=== PATIENT | female | born 1955 | race Caucasian/White ===

== ENCOUNTER → 2017-02-19 | Outpatient (CLI) | payer OTHER ==
[~2017-02-19] MED LIST: ACET-2043 PO; ACYC-1 PO; ACYC800T99 PO; ADV100/50 INH; ADVAIR; ALB17R; ALBU8.5H IH; ALBU8.5H12 IH; AMIT-104 PO; AMOX-362 PO; AZIT-1 PO; AZIT-17 PO; BENZ200C15 PO; BLOO-1318 MC; BLOO-1337 MC; BP MED; CET10 PO; CHOL200038 PO; CITA-137 PO; COUGH SYRUP; CYAN1TAB68 PO; CYC10 PO; CYCL10TA29 PO; DAR100 PO; DEXL60CA6 PO; DIAZ-308 PO; DOXY-181 PO; DULO60CA56 PO; ESCI10TA8 PO; ESTR1POW41 PO; FAMO-67 PO; FAMO40TA62 PO; FERR-41 PO; FLUT1DIS27 IH; FLUT9.9S; FUR20 PO; GABA-506 PO; GABA-549 PO; GLUC100026 PO; GOLYTE PO; GUAI120L3 PO; HEART MED; HYDR-385 PO; IBUP-1482 PO; KET10 PO; LANC-1149 MC; LEVO25TA61 PO; LIB PO; LOR5/325 PO; LORA-630 PO; MELO-150 PO; METH4TAB66 PO; METO-733 PO; METO25TA23 PO; MIL50PT PO; MOMR; MON10 PO; MULT-1085 PO; MULT-785 PO; NAPR-724 PO; NYST100040 PO; OMEP-125 PO; ONDA4TAB97 PO; OXYC-865 PO; PAN40; PANT20TA27 PO; PANT40TA65 PO; PIOG15TA66 PO; PRED20TA6 PO; PREG25 PO; PROM-110 PO; QUE25 PO; QUET25TA30 PO; RABE20TA33 PO; Return to Work; Return to work; SIME80TA PO; SUCR1TAB51 PO; SULF-198 PO; SUMA100T32 PO; TRA50 PO; TRAZ-156 PO; VAL500 PO; VALA100059 PO; VALA500T63 PO; VALA500T66 PO; VIT-40 PO; VIT1TABL PO; ZOLP-1 PO; [UNRECOGNIZED DRUG - OTHER]; [UNRECOGNIZED DRUG - REMARK]; [UNRECOGNIZED DRUG - REMARK]; [UNRECOGNIZED DRUG - REMARK]
== END ==
LOC: LAB 08:57
PROVIDERS: ATTEND Nurse Practitioner Family
DX: E78.5 Hyperlipidemia, unspecified (principal)
CPT/HCPCS: 36415; 82040; 82247; 82310; 82374; 82435; 82465; 82565; 82947; 83718; 84075; 84132; 84155; 84295; 84450; 84460; 84478; 84520

== ENCOUNTER 2017-04-11 15:06 | Emergency (ER) | payer OTHER ==
--- NOTE | 2017-04-11 15:08 | ER Report ---
History and Physical Time Seen By MD: 15:06 HPI/ABDIRASHID CHIEF COMPLAINT: altered mental status HISTORY OF PRESENT ILLNESS: This is a 61 year old female. She was at work this morning and was at the employee meeting where work assignments were given. She does not remember what happened after that. She remembers her friends/coworkers saying that she looked terrible. She next remembers being driven home. Her boss called her to check in and suggested that it would be good to be evaluated. She drove herself to urgent care for evaluation. Teresita Birmingham [facility] and started an evaluation. She let me know that she would be coming to the ER. The patient did not seem as sharp mentally as she had been on previous visits. At urgent care the patient had reported some epigastric pain ; some urinary frequency and mild dysuria; no current headache, but some headaches earlier in the week; very fatigued for about a week; some blurred vision off and on for the last week; some mild shortness of breath off and on this week; also some dizziness off and on this week. She denied chest pain, numbness or tingling or weakness. EMS brought her to the ER. They reported a normal blood sugar of 159. Normal vital signs. They elicited a complaint of right sided abdominal pain and fatigue. They had a negative stroke scale. On my exam, I was able to find out that she has epigastric abdominal discomfort, but no right sided abdominal pain. She gave me the same information regarding her lack of memory surrounding events this morning. She has no headache at this time. She feels a little dizzy with sitting up. Confirmed the intermittent shortness of breath, and the intermittent blurred vision. She has had some dental pain recently as well. Has been working hard and thinks maybe not drinking or eating as much recently. Denies any weakness at this time. Denies numbness. REVIEW OF SYSTEMS: Constitutional: No fever or chills. Eyes: No double vision. ENT: No sore throat. No congestion. No hearing changes. Cardiovascular: No chest pain. No palpitations. Respiratory: No cough. Gastrointestinal: No nausea or vomiting. No change in bowel movements. No blood in the stool or melena. Genitourinary: No dysuria. No hematuria. Musculoskeletal: No back pain. No extremity pain. Skin: No rashes. No bruising. Neurological: No numbness. No weakness. Allergies: Coded Allergies: milk (Verified Adverse Reaction, Unknown, DIARRHEA, 07/02/16) Home Meds Active Scripts Fluticasone/Salmeterol (ADVAIR 100-50 DISKUS) 1 Each Disk.w.dev, 1 EACH IH QDAY , #1 DISK 11 Refills Prov:TISHA LAST APRN-C 02/21/17 Methylprednisolone (METHYLPREDNISOLONE) 4 Mg Tab.ds.pk, 4 MG PO DIRECTED, #1 DOSE-PACK 0 Refills Prov:TISHA LAST APRN-C 02/18/17 Levothyroxine Sodium (LEVOTHYROXINE SODIUM) 25 Mcg Tablet, 1 TAB PO QDAY, #90 TAB 2 Refills Prov:TISHA LAST APRN-C 12/20/16 Duloxetine Hcl (CYMBALTA) 60 Mg Capsule.dr, 1 TAB PO QDAY, #30 CAP 5 Refills Prov:TISHA LAST APRN-Vivian 11/21/16 Gabapentin (GABAPENTIN) 300 Mg Capsule, 4 CAP PO DAILY, #120 CAPSULE 5 Refills Take one cap morning and afternoon and 2 caps at bedtime Prov:TISHA LAST APRN-Vivian 11/21/16 Sucralfate (SUCRALFATE) 1 Gm Tablet, 1 TAB PO ACHS, #120 TAB 1 Refill Prov:TISHA LAST APRN-C 08/01/16 Acyclovir (ACYCLOVIR) 800 Mg Tablet, 1 TAB PO QID Y for hepes outbreak, #90 TAB 0 Refills Prov:TISHA LAST APRN-C 08/01/16 Pantoprazole Sodium (PANTOPRAZOLE SODIUM) 40 Mg Tablet.dr, 40 MG PO QDAY, #30 TAB.SR 6 Refills Prov:JIM NAGY MD 05/29/16 Reported Medications Famotidine (FAMOTIDINE) 20 Mg Tablet, 20 MG PO QDAY, TAB 04/11/17 Albuterol Sulfate 90 Mcg/Act (PROAIR HFA 90 MCG/ACT) 8.5 Gm Hfa.aer.ad, 2 PUFF IH Q4-6H, INHALER 11/20/16 Pioglitazone Hcl (PIOGLITAZONE HCL) 15 Mg Tablet, 15 MG PO BID 07/02/16 Metoprolol Succinate (METOPROLOL SUCCINATE) 25 Mg Tab.er.24h, 1 TAB PO QDAY, TAB 07/02/16 Discontinued Reported Medications Glucosamine Sulfate 2KCL (GLUCOSAMINE) 1,000 Mg Tablet, 1000 MG PO DAILY 12/28/15 Acetaminophen (ACETAMINOPHEN) 500 Mg Tablet, 1 TAB PO TID, TAB 12/28/15 Past Medical/Surgical History Hypertension, Type 2 Diabetes, Hiatal hernia, GERD. Reviewed Nurses Notes: Yes Hx Smoking: No Smoking Status: Never Smoker Hx Substance Use Disorder: No Hx Alcohol Use: No Constitutional Vital Sign - Last 24 Hours 04/11/17 04/11/17 04/11/17 04/11/17 15:06 15:07 15:21 15:30 Temp 97.5 Pulse 79 81 79 Resp 17 16 15 B/P (MAP) 117/82 118/77 (91) Pulse Ox 96 95 96 O2 Delivery Nasal Cannula 04/11/17 04/11/17 04/11/17 04/11/17 15:36 15:50 15:51 16:00 Pulse 80 ??? Resp 16 13 B/P (MAP) ???/??? (1665) Pulse Ox 97 97 O2 Flow Rate 2.0 04/11/17 04/11/17 04/11/17 04/11/17 16:06 16:21 16:30 16:36 Pulse ? 72 Resp 10 B/P (MAP) 135/94 (108) Pulse Ox 95 04/11/17 04/11/17 04/11/17 04/11/17 16:41 16:56 17:00 17:11 Pulse 78 79 82 Resp 15 14 16 B/P (MAP) 115/69 (84) Pulse Ox 93 94 94 04/11/17 04/11/17 04/11/17 17:26 17:30 17:41 Pulse 83 83 Resp 16 28 B/P (MAP) 102/55 (71) Pulse Ox 95 95 Physical Exam General Appearance: The patient is alert. No acute distress. Non-toxic in appearance. Eyes: Pupils are equal, round. Reactive to light. No pallor, injection or icterus. Extraocular movements are intact. ENT: Mucous membranes are moist. Normal oral mucosa. Posterior oropharynx is normal. Normal nasal mucosa. Normal tympanic membranes and canals. Neck: Supple and non tender. No lymphadenopathy. Respiratory: Lungs are clear to auscultation. There are no retractions or accessory muscle use. Cardiovascular: Regular rate and rhythm. No murmurs, gallops or rubs. Normal capillary refill. No edema. Gastrointestinal: Abdomen has some epigastric area discomfort, but no focal pain. Nondistended. No rebound or guarding. No masses or organomegaly. Normal active bowel sounds. No costovertebral angle tenderness with percussion. Neurological: Alert and oriented x3. Cranial nerves with eye exam as above, no facial droop or numbness, midline tongue and palate elevation symmetric, normal shoulder shrug. No focal neurologic deficits in the extremities with no weakness. Skin: Warm and dry. No rashes. Musculoskeletal: Extremities are nontender. No tenderness in palpation of the cervical, thoracic and lumbar spine. DIFFERENTIAL DIAGNOSIS: After history and physical exam, differential diagnosis was considered for a patient with non-specific symptoms. Will look at labs, urinalysis, EKG, chest x-ray, and head CT scan. No focal neurologic deficits. Medical Decision Making Data Points Result Diagram: 04/11/17 1521 04/11/17 1521 Laboratory Hematology Test 04/11/17 15:21 04/11/17 15:44 Red Blood Count 4.20 M/uL (4.17-5.56) Mean Corpuscular Volume 92.3 fL (80.0-96.0) Mean Corpuscular Hemoglobin 31.2 pg (26.0-33.0) Mean Corpuscular Hemoglobin Concent 33.8 g/dL (32.0-36.0) Red Cell Distribution Width 13.8 % (11.5-14.5) Mean Platelet Volume 10.2 fL (7.2-11.1) Neutrophils (%) (Auto) 45.5 % (39.4-72.5) Lymphocytes (%) (Auto) 43.1 % (17.6-49.6) Monocytes (%) (Auto) 8.8 % (4.1-12.4) Eosinophils (%) (Auto) 2.1 % (0.4-6.7) Basophils (%) (Auto) 0.5 % (0.3-1.4) Nucleated RBC Relative Count (auto) 0.0 /100WBC Neutrophils # (Auto) 2.3 K/uL (2.0-7.4) Lymphocytes # (Auto) 2.2 K/uL (1.3-3.6) Monocytes # (Auto) 0.4 K/uL (0.3-1.0) Eosinophils # (Auto) 0.1 K/uL (0.0-0.5) Basophils # (Auto) 0.0 K/uL (0.0-0.1) Nucleated RBC Absolute Count (auto) 0.00 K/uL Prothrombin Time 12.6 seconds (12.0-14.4) Prothromb Time International Ratio 0.95 Activated Partial Thromboplast Time 27 seconds (23-35) Sodium Level 136 mmol/L (137-145) Potassium Level 3.8 mmol/L (3.5-5.0) Chloride Level 102 mmol/L (98-107) Carbon Dioxide Level 22 mmol/L (22-31) Blood Urea Nitrogen 20 mg/dl (7-18) Creatinine 0.80 mg/dl (0.52-1.04) Glomerular Filtration Rate Calc > 60.0 Random Glucose 132 mg/dl (75-110) Calcium Level 9.2 mg/dl (8.4-10.2) Total Bilirubin 0.6 mg/dl (0.2-1.3) Aspartate Amino Transf (AST/SGOT) 27 U/L (0-35) Alanine Aminotransferase (ALT/SGPT) 33 U/L (0-56) Alkaline Phosphatase 109 U/L (0-126) Troponin I < 0.012 ng/ml C-Reactive Protein < 0.5 mg/dl (<1.0) B-Type Natriuretic Peptide 69 pg/ml (0-100) Total Protein 7.6 gm/dl (6.3-8.2) Albumin 4.0 g/dl (3.5-5.0) Urine Color Yellow Urine Clarity Clear Urine pH 5.0 pH (4.8-9.5) Urine Specific [place] 1.027 Urine Protein Negative mg/dL (NEGATIVE) Urine Glucose (UA) Negative mg/dL (NEGATIVE) Urine Ketones Trace mg/dL (NEGATIVE) Urine Blood Negative (NEGATIVE) Urine Nitrite Negative (NEGATIVE) Urine Bilirubin Negative (NEGATIVE) Urine Urobilinogen Negative mg/dL (0.2-1.9) Urine Leukocyte Esterase Negative (NEGATIVE) Urine RBC None /HPF (0-2/HPF) Urine WBC <1 /HPF (0-5/HPF) Urine Squamous Epithelial Cells Few /LPF (NONE-FEW) Urine Bacteria Negative /HPF (NONE-FEW) Urine Mucus Few /HPF (NONE-FEW) Chemistry Test 04/11/17 15:21 04/11/17 15:44 White Blood Count 5.1 k/uL (4.5-11.0) Red Blood Count 4.20 M/uL (4.17-5.56) Hemoglobin 13.1 g/dL (12.0-16.0) Hematocrit 38.7 % (34.0-47.0) Mean Corpuscular Volume 92.3 fL (80.0-96.0) Mean Corpuscular Hemoglobin 31.2 pg (26.0-33.0) Mean Corpuscular Hemoglobin Concent 33.8 g/dL (32.0-36.0) Red Cell Distribution Width 13.8 % (11.5-14.5) Platelet Count 172 K/uL (150-450) Mean Platelet Volume 10.2 fL (7.2-11.1) Neutrophils (%) (Auto) 45.5 % (39.4-72.5) Lymphocytes (%) (Auto) 43.1 % (17.6-49.6) Monocytes (%) (Auto) 8.8 % (4.1-12.4) Eosinophils (%) (Auto) 2.1 % (0.4-6.7) Basophils (%) (Auto) 0.5 % (0.3-1.4) Nucleated RBC Relative Count (auto) 0.0 /100WBC Neutrophils # (Auto) 2.3 K/uL (2.0-7.4) Lymphocytes # (Auto) 2.2 K/uL (1.3-3.6) Monocytes # (Auto) 0.4 K/uL (0.3-1.0) Eosinophils # (Auto) 0.1 K/uL (0.0-0.5) Basophils # (Auto) 0.0 K/uL (0.0-0.1) Nucleated RBC Absolute Count (auto) 0.00 K/uL Prothrombin Time 12.6 seconds (12.0-14.4) Prothromb Time International Ratio 0.95 Activated Partial Thromboplast Time 27 seconds (23-35) Glomerular Filtration Rate Calc > 60.0 Calcium Level 9.2 mg/dl (8.4-10.2) Total Bilirubin 0.6 mg/dl (0.2-1.3) Aspartate Amino Transf (AST/SGOT) 27 U/L (0-35) Alanine Aminotransferase (ALT/SGPT) 33 U/L (0-56) Alkaline Phosphatase 109 U/L (0-126) Troponin I < 0.012 ng/ml C-Reactive Protein < 0.5 mg/dl (<1.0) B-Type Natriuretic Peptide 69 pg/ml (0-100) Total Protein 7.6 gm/dl (6.3-8.2) Albumin 4.0 g/dl (3.5-5.0) Urine Color Yellow Urine Clarity Clear Urine pH 5.0 pH (4.8-9.5) Urine Specific [place] 1.027 Urine Protein Negative mg/dL (NEGATIVE) Urine Glucose (UA) Negative mg/dL (NEGATIVE) Urine Ketones Trace mg/dL (NEGATIVE) Urine Blood Negative (NEGATIVE) Urine Nitrite Negative (NEGATIVE) Urine Bilirubin Negative (NEGATIVE) Urine Urobilinogen Negative mg/dL (0.2-1.9) Urine Leukocyte Esterase Negative (NEGATIVE) Urine RBC None /HPF (0-2/HPF) Urine WBC <1 /HPF (0-5/HPF) Urine Squamous Epithelial Cells Few /LPF (NONE-FEW) Urine Bacteria Negative /HPF (NONE-FEW) Urine Mucus Few /HPF (NONE-FEW) Coagulation Test 04/11/17 15:21 Prothrombin Time 12.6 seconds Prothromb Time International Ratio 0.95 Activated Partial Thromboplast Time 27 seconds Urinalysis Test 04/11/17 15:44 Urine Color Yellow Urine Clarity Clear Urine pH 5.0 pH (4.8-9.5) Urine Specific [place] 1.027 Urine Protein Negative mg/dL (NEGATIVE) Urine Glucose (UA) Negative mg/dL (NEGATIVE) Urine Ketones Trace mg/dL (NEGATIVE) Urine Blood Negative (NEGATIVE) Urine Nitrite Negative (NEGATIVE) Urine Bilirubin Negative (NEGATIVE) Urine Urobilinogen Negative mg/dL (0.2-1.9) Urine Leukocyte Esterase Negative (NEGATIVE) Urine RBC None /HPF (0-2/HPF) Urine WBC <1 /HPF (0-5/HPF) Urine Squamous Epithelial Cells Few /LPF (NONE-FEW) Urine Bacteria Negative /HPF (NONE-FEW) Urine Mucus Few /HPF (NONE-FEW) EKG/Imaging EKG Interpretation Reviewed the EKG from urgent care which shows a sinus rhythm with rate 82, nonspecific T-wave changes but no ST elevation or depression. Normal axis without any QRS abnormalities. 12 lead EKG: Rhythm: normal sinus rhythm, rate 77 [place]: normal QRS: normal ST segments: Nonspecific flattening of T waves, no ST elevation or depression noted Imaging EXAMINATION: CT Head without intravenous contrast HISTORY: Altered mental status. TECHNIQUE: Axial images were obtained from the skull base to the vertex without intravenous contrast. Sagittal and coronal reformatted images are also submitted. One of the following dose optimization techniques was utilized in the performance of this exam: Automated exposure control; adjustment of the mA and/ or kV according to the patient's size; or use of an iterative reconstruction technique. Specific details can be referenced in the facility's radiology CT exam operational policy. COMPARISON: 03/18/2012. FINDINGS: Brain volume: Normal. Ventricles: Negative. Acute ischemic changes: None. Hemorrhage: None. Masses / edema: None. [place]-white: Negative. White matter: Negative. Vessels: Negative. Extra-axial: Negative. 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 Otherwise negative. Visualized sinuses / orbits: Leftward nasal septal deviation anteriorly. Rightward nasal septal deviation posteriorly. IMPRESSION: No acute intracranial abnormality. Report Dictated By: Des Vega MD at 04/11/2017 4:17 PM 2 VIEWS CHEST INDICATION: Altered mental status. Epigastric pain. COMPARISON: 06/24/2016. FINDINGS: Cardiomediastinal silhouette and pulmonary vessels within normal limits. There is no focal infiltrate or lobar consolidation. There is no pneumothorax or pleural effusion. No nodule. Upper abdomen is unremarkable. No acute bony abnormality. IMPRESSION: 1. No acute cardiopulmonary process. Report Dictated By: Todd Delaney at 04/11/2017 4:17 PM ED Course/Re-evaluation Clinical Indication for ER IV: Hydration, IV Access ED Course Evaluation did not reveal any major problems. She did have a mildly low sodium, and an elevated BUN/Cr ratio with a concentrated urine and urine ketones. We gave a liter of normal saline and she does feel better. EKG and imaging as above was negative. Still no focal neurologic deficits on re-evaluation and she remains alert and oriented. Normal vital signs. Discussed the need to rest and increase fluid intake over the weekend. Decision to Disposition Date: Apr 11, 2017 Decision to Disposition Time: 17:35 Depart Departure Latest Vital Signs Vital Signs Date Time Temp Pulse Resp B/P (MAP) Pulse Ox O2 Delivery O2 Flow Rate FiO2 04/11/17 17:41 83 28 95 04/11/17 17:30 102/55 (71) 04/11/17 15:50 2.0 04/11/17 15:07 97.5 Nasal Cannula Impression: Primary Impression: Dehydration Condition: Improved Disposition: HOME OR SELF-CARE Referrals: TISHA LAST APRNP-C (PCP) Patient Instructions: Dehydration (ED) Additional Instructions: The evaluation here in the ER today showed some dehydration, but no other problems. We would like to have you rest over the next few days and increase fluid intake. Light to moderate activity is okay. If you have further problems like today, please return for re-evaluation. We recommend seeing your primary care doctor next week for re-evaluation as well. BRENDA NOONAN MD Apr 11, 2017 15:08
[2017-04-11] MEDS ORDERED: FAMO-67 PO (15:29)
[2017-04-11 15:45] LABS: PLATELET COUNT, AUTOMATED 172 K/uL (150-450)
--- NOTE | 2017-04-11 16:10 | EKG ---
FACILITY: [facility] PATIENT NAME: SAUL WALTERS : [id number] MR: [id number] V: [id number] EXAM DATE: ORDERING PHYSICIAN: BRENDA NOONAN TECHNOLOGIST: LUIS ANTONIO Smyth Reason : CHEST PRESSURE Blood Pressure : / mmHG Vent. Rate : 077 BPM Atrial Rate : 077 BPM P-R Int : 164 ms QRS Dur : 068 ms QT Int : 396 ms P-R-T Axes : 057 069 067 degrees QTc Int : 448 ms Normal sinus rhythm Normal ECG When compared with ECG of 18-JUN-2016 08:15, Relatively unchanged Confirmed by TACOS KIM ([id number]) on 04/12/2017 6:38:51 AM Referred By: SHAISTA Confirmed By:TACOS KIM
[2017-04-11 16:23] LABS: INR 0.95
--- NOTE | 2017-04-11 16:23 | RADIOLOGY IMAGING REPORT ---
FACILITY: [facility] PATIENT NAME: Ellyn Cisneros : 1955 MR: [id number] V: [id number] EXAM DATE: ORDERING PHYSICIAN: BRENDA NOONAN [place]CHNOLOG[place]: [place] [facility] [place]lyn C[place] : 1955 Visit/Account:[id number] Date of Sevice: 04/11/2017 2 VIEWS CHEST INDICATION: Altered mental status. Epigastric pain. COMPARISON: 06/24/2016. FINDINGS: Cardiomediastinal silhouette and pulmonary vessels within normal limits. There is no focal infiltrate or lobar consolidation. There is no pneumothorax or pleural effusion. No nodule. Upper abdomen is unremarkable. No acute bony abnormality. IMPRESSION: 1. No acute cardiopulmonary process. Report Dictated By: Todd Delaney at 04/11/2017 4:17 PM Report E-Signed By: Todd Delaney at 04/11/2017 4:18 PM [id number]:[email or web address]
--- NOTE | 2017-04-11 16:25 | RADIOLOGY IMAGING REPORT ---
[place] [facility] [place] NAME: Ellyn Cisneros : 1955 MR: [id number] V: [id number] EXAM DATE: ORDERING PHYSICIAN: BRENDA NOONAN TECHNOLOGIST: Location: [facility] [place] Patient: Ellyn Cisneros : 1955 Visit/Account:[id number] Date of Sevice: 04/11/2017 EXAMINATION: CT Head without intravenous contrast HISTORY: Altered mental status. TECHNIQUE: Axial images were obtained from the skull base to the vertex without intravenous contrast . Sagittal and coronal reformatted images are also submitted. One of the following dose optimization techniques was utilized in the performance of this exam: Autom ated exposure control; adjustment of the mA and/or kV according to the patient's size; or use of an i terative reconstruction technique. Specific details can be referenced in the facility's radiology C T exam operational policy. COMPARISON: 03/18/2012. FINDINGS: Brain volume: Normal. Ventricles: Negative. Acute ischemic changes: None. Hemorrhage: None. Masses / edema: None. [place]-white: Negative. White matter: Negative. Vessels: Negative. Extra-axial: Negative. 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 Otherwise negative. Visualized sinuses / orbits: Leftward nasal septal deviation anteriorly. Rightward nasal septal david ation posteriorly. IMPRESSION: No acute intracranial abnormality. Report Dictated By: Des Vega MD at 04/11/2017 4:17 PM Report E-Signed By: Des Vega MD at 04/11/2017 4:21 PM WSN:[id number]
[2017-04-11] MEDS ORDERED: NS(*) 0.9% 1000 ML BAG 1,000 ML IV ONE (16:30)
[2017-04-11 17:30] VITALS: BP 102/55
[2017-04-14] MEDS ORDERED: Return to work (15:58)
== END 2017-04-11 17:55 | disposition home or self-care (01) ==
LOC: ER 15:09
DX: E86.0 Dehydration (principal)
CPT/HCPCS: 70450; 71046; 81001; 83880; 84484; 85025; 85610; 85730; 86140; 93005; 96360; 99284; A4353; J7030; 82040; 82247; 82310; 82374; 82435; 82565; 82947; 84075; 84132; 84155; 84295; 84450; 84460; 84520

== ENCOUNTER → 2017-04-11 | Outpatient (CLI) | payer OTHER ==
[~2017-04-11] MED LIST changes: -NAPR-724 PO; +NAPR500T31 PO
== END ==
LOC: AMB 14:46
PROVIDERS: ATTEND Nurse Practitioner
DX: R41.82 Altered mental status, unspecified (principal); R10.31 Right lower quadrant pain
CPT/HCPCS: A0425; A0427

== ENCOUNTER 2017-05-01 08:12 | Emergency (ER) | payer OTHER ==
[~2017-05-01 08:12] MED LIST changes: -FLUC150T40 PO
[2017-05-01] MEDS ORDERED: ASPIRIN 81 MG CHEW PO ONE (08:20)
--- NOTE | 2017-05-01 08:24 | ER Report ---
History and Physical Time Seen By MD: 08:23 Hx. of Stated Complaint: HAD CP THIS AM AFTER GETTING TO WORK, WHICH RESOLVED PRIOR TO ARRIVAL OF AMBULANCE. NOW IS TIRED AND HAS A H/A DID NOT TAKE HER MEDS AND COFFEE, SHE OVERSLEPT HAS NOT BEEN TAKING HER METOPROLOL FOR 10 DAYS SHE HAS BEEN OUT OF [place] HPI/ROS CHIEF COMPLAINT: Chest pain HISTORY OF PRESENT ILLNESS: Patient is a 61-year-old female who presents to the emergency department by ambulance for an episode of chest pain that occurred at work this morning. Patient states she was in a group meeting standing with other employees when she developed severe onset of substernal chest pain that lasted approximately 2 seconds and then fairly quickly subsided to just a dull ache and then resolved upon arrival of EMS. She was given aspirin by the prehospital personnel. She now just feels weak and has a global type headache. She denies any visual changes. She denies any current chest pain or pressure. She denies abdominal pain nausea vomiting or diarrhea. Patient was seen in the emergency department on April 11 for a "blacking out episode". Workup at that time which included blood work and a CT scan was unremarkable. Patient has been well since that episode patient has no prior cardiac history. She did not take her normal medications today as she was late for work. REVIEW OF SYSTEMS: Constitutional: No fever, no chills. Eyes: No discharge. ENT: No sore throat. Cardiovascular: Sharp stabbing chest pain lasting 2 seconds Respiratory: No cough, no shortness of breath. Gastrointestinal: No abdominal pain, no vomiting. Genitourinary: No hematuria. Musculoskeletal: No back pain. Skin: No rashes. Neurological: Generalized headache. Allergies: Coded Allergies: milk (Verified Adverse Reaction, Unknown, DIARRHEA, 05/01/17) Home Meds Active Scripts Fluticasone/Salmeterol (ADVAIR 100-50 DISKUS) 1 Each Disk.w.dev, 1 EACH IH QDAY , #1 DISK 11 Refills Prov:TISHA LAST APRN-Vivian 02/21/17 Levothyroxine Sodium (LEVOTHYROXINE SODIUM) 25 Mcg Tablet, 1 TAB PO QDAY, #90 TAB 2 Refills Prov:TISHA LAST APRN-Vivian 12/20/16 Duloxetine Hcl (CYMBALTA) 60 Mg Capsule.dr, 1 TAB PO QDAY, #30 CAP 5 Refills Prov:TISHA LAST APRN-C 11/21/16 Gabapentin (GABAPENTIN) 300 Mg Capsule, 4 CAP PO DAILY, #120 CAPSULE 5 Refills Take one cap morning and afternoon and 2 caps at bedtime Prov:TISHA LAST APRN-C 11/21/16 Sucralfate (SUCRALFATE) 1 Gm Tablet, 1 TAB PO ACHS, #120 TAB 1 Refill Prov:TISHA LAST APRN-C 08/01/16 Acyclovir (ACYCLOVIR) 800 Mg Tablet, 1 TAB PO QID Y for hepes outbreak, #90 TAB 0 Refills Prov:TISHA LAST APRN-C 08/01/16 Pantoprazole Sodium (PANTOPRAZOLE SODIUM) 40 Mg Tablet., 40 MG PO QDAY, #30 TAB.SR 6 Refills Prov:JIM NAGY MD 05/29/16 Reported Medications Famotidine (FAMOTIDINE) 20 Mg Tablet, 20 MG PO QDAY, TAB 04/11/17 Albuterol Sulfate 90 Mcg/Act (PROAIR HFA 90 MCG/ACT) 8.5 Gm Hfa.aer.ad, 2 PUFF IH Q4-6H, INHALER 11/20/16 Pioglitazone Hcl (PIOGLITAZONE HCL) 15 Mg Tablet, 15 MG PO BID 07/02/16 Metoprolol Succinate (METOPROLOL SUCCINATE) 25 Mg Tab.er.24h, 1 TAB PO QDAY, TAB 07/02/16 Discontinued Scripts [Return to work] No Conflict Check Patient seen in the office today. May return to work 04/15/17. Prov:ROMAN SAWYER DNP, STREETCAR OPERATOR-BC 04/14/17 Methylprednisolone (METHYLPREDNISOLONE) 4 Mg Tab.ds.pk, 4 MG PO DIRECTED, #1 DOSE-PACK 0 Refills Prov:TISHA LAST APRNC 02/18/17 Past Medical/Surgical History Past medical history for tachycardia, asthma, gastroesophageal reflux disease, fibromyalgia, neck pain. Patient is status post a cholecystectomy and hernia repair. Also history of hysterectomy. Hx Smoking: No Smoking Status: Never Smoker Hx Substance Use Disorder: No Hx Alcohol Use: No Constitutional Vital Sign - Last 24 Hours 05/01/17 05/01/17 05/01/17 05/01/17 08:13 08:16 08:30 08:42 Temp 98.4 Pulse 77 74 Resp 20 17 B/P (MAP) 123/90 123/90 (101) 122/88 (99) Pulse Ox 94 92 O2 Delivery Room Air 05/01/17 05/01/17 05/01/17 05/01/17 08:47 08:48 09:17 09:20 Pulse 68 69 Resp 13 B/P (MAP) 105/82 (90) Pulse Ox 96 98 O2 Flow Rate 2.0 05/01/17 05/01/17 05/01/17 05/01/17 09:30 09:47 10:00 10:17 Pulse 68 72 Resp 12 12 B/P (MAP) 108/76 (87) 109/75 (86) Pulse Ox 100 100 05/01/17 05/01/17 05/01/17 05/01/17 10:30 10:35 11:00 11:05 Pulse 69 68 Resp 13 B/P (MAP) 102/68 (79) 115/86 (96) Pulse Ox 98 05/01/17 05/01/17 05/01/17 05/01/17 11:25 11:30 12:00 12:05 Pulse 70 72 Resp 12 15 B/P (MAP) 112/75 (87) 108/63 (78) Pulse Ox 98 98 Intake and Output 05/01/17 05/01/17 05/02/17 15:00 23:00 07:00 Intake Total 500 ml Balance 500 ml Physical Exam General/Constitutional: Patient is awake, alert, nontoxic and in no acute respiratory distress. GCS is 15 Head: Normocephalic and atraumatic. Eyes: Conjunctival clear, Pupils are equal and reactive to light. Extraocular muscles are intact and symmetrical. Sclera are clear and anicteric. Ears:External canals are clear. Tympanic membranes are clear with normal landmarks and light reflex. Nares: No rhinorrhea or bleeding. Turbinates are pink and moist. Oropharyngeal: Mucous membranes are moist. There is no pharyngeal erythema or exudate. There are no palatal petechiae. Uvula is midline and symmetrical. Neck: Supple, no adenopathy. Cardiovascular: Heart is regular rate and rhythm without audible murmurs, rubs or gallops. Pulmonary: Lungs are clear to auscultation bilaterally. There are no wheezes, rales, or rhonchi. Chest rise is symmetrical Abdomen: Soft, nontender, no guarding or peritoneal signs. Extremities: No gross deformities, No peripheral cyanosis. Able to move all 4 extremities. Neuro: Alert and oriented X3, Cranial nerves 2 thru 12 are intact and symmetrical. Gross motor strength and sensory exam is unremarkable Skin: No rashes, skin is warm dry and well perfused. Medical Decision Making Data Points Result Diagram: 05/01/17 0810 05/01/17 0810 Laboratory Hematology Test 05/01/17 08:10 05/01/17 11:41 Red Blood Count 4.17 M/uL (4.17-5.56) Mean Corpuscular Volume 92.8 fL (80.0-96.0) Mean Corpuscular Hemoglobin 31.5 pg (26.0-33.0) Mean Corpuscular Hemoglobin Concent 33.9 g/dL (32.0-36.0) Red Cell Distribution Width 13.9 % (11.5-14.5) Mean Platelet Volume 9.8 fL (7.2-11.1) Neutrophils (%) (Auto) 45.7 % (39.4-72.5) Lymphocytes (%) (Auto) 41.6 % (17.6-49.6) Monocytes (%) (Auto) 10.1 % (4.1-12.4) Eosinophils (%) (Auto) 2.1 % (0.4-6.7) Basophils (%) (Auto) 0.5 % (0.3-1.4) Nucleated RBC Relative Count (auto) 0.0 /100WBC Neutrophils # (Auto) 2.1 K/uL (2.0-7.4) Lymphocytes # (Auto) 1.9 K/uL (1.3-3.6) Monocytes # (Auto) 0.5 K/uL (0.3-1.0) Eosinophils # (Auto) 0.1 K/uL (0.0-0.5) Basophils # (Auto) 0.0 K/uL (0.0-0.1) Nucleated RBC Absolute Count (auto) 0.00 K/uL Prothrombin Time 12.8 seconds (12.0-14.4) Prothromb Time International Ratio 0.96 Activated Partial Thromboplast Time 27 seconds (23-35) Sodium Level 139 mmol/L (137-145) Potassium Level 4.2 mmol/L (3.5-5.0) Chloride Level 103 mmol/L (98-107) Carbon Dioxide Level 25 mmol/L (22-31) Blood Urea Nitrogen 20 mg/dl (7-18) Creatinine 0.90 mg/dl (0.52-1.04) Glomerular Filtration Rate Calc > 60.0 Random Glucose 92 mg/dl (75-110) Calcium Level 9.4 mg/dl (8.4-10.2) Total Bilirubin 0.7 mg/dl (0.2-1.3) Aspartate Amino Transf (AST/SGOT) 30 U/L (0-35) Alanine Aminotransferase (ALT/SGPT) 28 U/L (0-56) Alkaline Phosphatase 110 U/L (0-126) B-Type Natriuretic Peptide 72 pg/ml (0-100) Total Protein 7.9 gm/dl (6.3-8.2) Albumin 4.2 g/dl (3.5-5.0) Troponin I < 0.012 ng/ml Chemistry Test 05/01/17 08:10 05/01/17 11:41 White Blood Count 4.6 k/uL (4.5-11.0) Red Blood Count 4.17 M/uL (4.17-5.56) Hemoglobin 13.1 g/dL (12.0-16.0) Hematocrit 38.7 % (34.0-47.0) Mean Corpuscular Volume 92.8 fL (80.0-96.0) Mean Corpuscular Hemoglobin 31.5 pg (26.0-33.0) Mean Corpuscular Hemoglobin Concent 33.9 g/dL (32.0-36.0) Red Cell Distribution Width 13.9 % (11.5-14.5) Platelet Count 179 K/uL (150-450) Mean Platelet Volume 9.8 fL (7.2-11.1) Neutrophils (%) (Auto) 45.7 % (39.4-72.5) Lymphocytes (%) (Auto) 41.6 % (17.6-49.6) Monocytes (%) (Auto) 10.1 % (4.1-12.4) Eosinophils (%) (Auto) 2.1 % (0.4-6.7) Basophils (%) (Auto) 0.5 % (0.3-1.4) Nucleated RBC Relative Count (auto) 0.0 /100WBC Neutrophils # (Auto) 2.1 K/uL (2.0-7.4) Lymphocytes # (Auto) 1.9 K/uL (1.3-3.6) Monocytes # (Auto) 0.5 K/uL (0.3-1.0) Eosinophils # (Auto) 0.1 K/uL (0.0-0.5) Basophils # (Auto) 0.0 K/uL (0.0-0.1) Nucleated RBC Absolute Count (auto) 0.00 K/uL Prothrombin Time 12.8 seconds (12.0-14.4) Prothromb Time International Ratio 0.96 Activated Partial Thromboplast Time 27 seconds (23-35) Glomerular Filtration Rate Calc > 60.0 Calcium Level 9.4 mg/dl (8.4-10.2) Total Bilirubin 0.7 mg/dl (0.2-1.3) Aspartate Amino Transf (AST/SGOT) 30 U/L (0-35) Alanine Aminotransferase (ALT/SGPT) 28 U/L (0-56) Alkaline Phosphatase 110 U/L (0-126) B-Type Natriuretic Peptide 72 pg/ml (0-100) Total Protein 7.9 gm/dl (6.3-8.2) Albumin 4.2 g/dl (3.5-5.0) Troponin I < 0.012 ng/ml Coagulation Test 05/01/17 08:10 Prothrombin Time 12.8 seconds Prothromb Time International Ratio 0.96 Activated Partial Thromboplast Time 27 seconds EKG/Imaging EKG Interpretation EKG shows normal sinus rhythm without significant ST segment abnormalities or T- wave changes. Monitor Interpretation: Normal Sinus Rhythm ED Course/Re-evaluation Clinical Indication for ER IV: Hydration, IV Access ED Course 05/01/2017 8:38:55 am plan at this time will be to perform a cardiac workup with a delta troponin at 3 hours. We will give IV Toradol for headache. Patient oriented he received aspirin. Patient is currently chest pain-free. Re-evaluation 05/01/2017 12:18:07 pm patient remained symptom-free. Repeat troponin is negative. Decision to Disposition Date: May 01, 2017 Decision to Disposition Time: 12:18 Depart Departure Latest Vital Signs Vital Signs Date Time Temp Pulse Resp B/P (MAP) Pulse Ox O2 Delivery O2 Flow Rate FiO2 05/01/17 12:05 72 15 98 05/01/17 12:00 108/63 (78) 05/01/17 08:48 2.0 05/01/17 08:13 98.4 Room Air Impression: Primary Impression: Chest pain Condition: Improved Disposition: HOME OR SELF-CARE Referrals: TISHA LAST APRN-Vivian (PCP) 2 Days Recheck of your chest pain. Patient Instructions: Chest Pain (DC) Additional Instructions: 05/01/2017 12:19:03 pm Follow up with her primary care provider in one to 2 days for just a recheck of your chest pain. If at any time your chest pain returns you should call 911 and be brought to the emergency department for reevaluation. Problem Qualifiers Primary Impression: Chest pain Chest pain type: unspecified Qualified Codes: R07.9 - Chest pain, unspecified DENI ARAIZA MD May 01, 2017 08:24
[2017-05-01] MEDS ORDERED: NS(*) 0.9% 500 ML BAG 500 ML IV ONE (08:40)
[2017-05-01] MEDS ORDERED: KETOROLAC 15 MG/ML VIAL IVP ONE (08:40)
--- NOTE | 2017-05-01 08:46 | EKG ---
FACILITY: [facility] [place] PATIENT NAME: SAUL WALTERS : [id number] MR: [id number] V: [id number] EXAM DATE: ORDERING PHYSICIAN: DENI ARAIZA TECHNOLOGIST: LEYLA Smyth Reason : CARDIAC Blood Pressure : / mmHG Vent. Rate : 071 BPM Atrial Rate : 071 BPM P-R Int : 168 ms QRS Dur : 062 ms QT Int : 446 ms P-R-T Axes : 047 042 050 degrees QTc Int : 484 ms Normal sinus rhythm Low voltage QRS Prolonged QT Abnormal ECG When compared with ECG of 11-APR-2017 15:26, No significant change was found Confirmed by MADELINE GUTIERREZ ([id number]) on 05/01/2017 4:40:38 PM Referred By: TEODORA Confirmed By:MADELINE GUTIERREZ
[2017-05-01 08:48] LABS: PLATELET COUNT, AUTOMATED 179 K/uL (150-450)
[2017-05-01 08:58] LABS: INR 0.96
--- NOTE | 2017-05-01 09:37 | RADIOLOGY IMAGING REPORT ---
FACILITY: [facility] PATIENT NAME: Ellyn Cisneros : 1955 MR: [id number] V: [id number] EXAM DATE: ORDERING PHYSICIAN: DENI ARAIZA TECHNOLOGIST: Location: [facility] Patient: Ellyn Cisneros : 1955 Visit/Account:[id number] Date of Sevice: 05/01/2017 HEAD W/O CONTRAST Provided history: larson Additional pertinent history: none TECHNIQUE: Imaging was obtained from the skull base through the vertex without intravenous contrast. Source images were reformatted in the coronal sagittal planes. One of the following dose optimization techniques was utilized in the performance of this exam: Autom ated exposure control; adjustment of the mA and/or kV according to the patient's size; or use of an i terative reconstruction technique. Specific details can be referenced in the facility's radiology CT exam operational policy. COMPARISON STUDIES: CT 04/11/17 FINDINGS: Brain volume: Normal Acute cortical ischemia: None Chronic cortical and ganglionic ischemia: none significant Hemorrhage: None Masses / edema: None White matter: Normal Vessels: Normal Extra-axial: None significant Calvarium / scalp: Negative Skull base: negative Visualized sinuses / orbits: Moderate size right lateral nasal septal spur does not fully touch the lateral nasal wall. No significant paranasal sinus inflammatory disease. IMPRESSION: Normal CT of the brain. No evidence of mass, acute ischemia or hemorrhage. Report Dictated By: Seth Nicholas MD at 05/01/2017 9:31 AM Report E-Signed By: Seth Nicholas MD at 05/01/2017 9:32 AM WSN:[id number]
--- NOTE | 2017-05-01 10:03 | RADIOLOGY IMAGING REPORT ---
FACILITY: [facility] PATIENT NAME: Ellyn Cisneros : 1955 MR: [id number] V: [id number] EXAM DATE: ORDERING PHYSICIAN: DENI ARAIZA [place]CHN[place]: [place] [facility] [place] Ellyn Cisneros : 1955 Visit/Account:[id number] Date of Sevice: 05/01/2017 CHEST PA AND LAT INDICATION: Chest Pain COMPARISON: April 11, 2017 FINDINGS: Heart size within normal limits. There is no focal infiltrate or lobar consolidation. There is no pneumothorax or pleural effusion. IMPRESSION: 1. No acute cardiopulmonary process. Report Dictated By: Gareth Brown at 05/01/2017 9:58 AM Report E-Signed By: Gareth Brown at 05/01/2017 10:00 AM WSN:[id number]
[2017-05-01 12:00] VITALS: BP 108/63
[2017-05-02] MEDS ORDERED: Return to work (09:34)
[2017-05-02] MEDS ORDERED: METO25TA23 PO (09:40)
[2017-05-05] MEDS ORDERED: FLUC150T40 PO (15:40)
[2017-05-05] MEDS ORDERED: METH4TAB66 PO (15:46)
[2017-05-05] MEDS ORDERED: Return to work (16:17)
== END 2017-05-01 12:34 | disposition home or self-care (01) ==
LOC: ER 08:29
DX: R07.89 Other chest pain (principal); R94.31 Abnormal electrocardiogram [ECG] [EKG]
CPT/HCPCS: 36415; 70450; 71046; 83880; 84484; 85025; 85610; 85730; 93005; 96361; 96374; 99284; J1885; J7040; 82040; 82247; 82310; 82374; 82435; 82565; 82947; 84075; 84132; 84155; 84295; 84450; 84460; 84520

== ENCOUNTER → 2017-05-01 | Outpatient (CLI) | payer OTHER ==
[~2017-05-01] MED LIST changes: +FLUC150T40 PO
== END ==
LOC: AMB 07:48
PROVIDERS: ATTEND Nurse Practitioner
DX: R07.9 Chest pain, unspecified (principal); R51 Headache; R53.83 Other fatigue; E11.649 Type 2 diabetes mellitus with hypoglycemia without coma
CPT/HCPCS: A0425; A0427

== ENCOUNTER → 2017-05-05 | Outpatient (CLI) | payer OTHER ==
[~2017-05-05] MED LIST changes: +FLUC150T40 PO
== END ==
LOC: LAB 16:00
PROVIDERS: ATTEND Nurse Practitioner Family
DX: E11.9 Type 2 diabetes mellitus without complications (principal); E03.9 Hypothyroidism, unspecified
CPT/HCPCS: 36415; 83036; 84443

== ENCOUNTER → 2017-05-30 | Outpatient (CLI) | payer OTHER ==
[~2017-05-30] MED LIST changes: +PIOG15TA2 PO; -PIOG15TA66 PO
[2017-05-30 07:41] LABS: LDL CHOLESTEROL 95 mg/dl
== END ==
LOC: LAB 06:51
PROVIDERS: ATTEND Family Medicine
DX: E11.65 Type 2 diabetes mellitus with hyperglycemia (principal); E78.5 Hyperlipidemia, unspecified; E03.9 Hypothyroidism, unspecified
CPT/HCPCS: 36415; 82040; 82043; 82247; 82310; 82374; 82435; 82465; 82565; 82947; 83036; 83718; 84075; 84132; 84155; 84295; 84443; 84450; 84460; 84478; 84520

== ENCOUNTER → 2017-07-01 | Outpatient (CLI) | payer OTHER ==
[~2017-07-01] MED LIST changes: -PIOG15TA2 PO; +PIOG15TA67 PO
[2017-07-01 13:01] LABS: PLATELET COUNT, AUTOMATED 171 K/uL (150-450)
--- NOTE | 2017-07-01 13:40 | RADIOLOGY IMAGING REPORT ---
FACILITY: [facility] PATIENT NAME: Ellyn Cisneros : 1955 MR: [id number] V: [id number] EXAM DATE: ORDERING PHYSICIAN: MING STANFORD TECHNOLOGIST: Location: [facility] Patient: Ellyn Cisneros : 1955 Visit/Account:[id number] Date of Sevice: 07/01/2017 CHEST PA AND LAT HISTORY: Shortness of breath. The area COMPARISON: Chest x-ray May 01, 2017. FINDINGS: Cardiomediastinal contours: The heart size is normal. Lungs and pleura: There is no finding of an infiltrate, lymphadenopathy or pleural effusion. Bones/soft tissues: There are no findings of a fracture. IMPRESSION: No active disease in the chest. Report Dictated By: Scott Arzola MD at 07/01/2017 1:36 PM Report E-Signed By: Scott Arzola MD at 07/01/2017 1:38 PM WSN:[email or web address]
--- NOTE | 2017-07-01 14:05 | RADIOLOGY IMAGING REPORT ---
FACILITY: [facility] [place] PATIENT NAME: Ellyn Cisneros : 1955 MR: [id number] V: [id number] EXAM DATE: ORDERING PHYSICIAN: MING STANFORD TECHNOLOGIST: Location: [facility] [place] Patient: Ellyn Cisneros : 1955 Visit/Account:[id number] Date of Sevice: 07/01/2017 KUB SINGLE VIEW ABDOMEN History: Abdominal pain. Comparison study: None. Findings: There are no dilated loops of large or small bowel to suggest ileus or obstruction. There is gas in the splenic flexure. There are surgical clips in right upper quadrant. There is a phlebolith in the pelvis on the left si de that is large measuring 13 mm in size. Other smaller phlebolith are noted. There is no nephrolithiasis. IMPRESSION: 1. Nonspecific bowel gas pattern without findings of ileus or obstruction. 2. Postoperative changes in the right upper quadrant. Report Dictated By: Scott Arzola MD at 07/01/2017 2:01 PM Report E-Signed By: Scott Arzola MD at 07/01/2017 2:02 PM WSN:[id number]
== END ==
LOC: RAD 12:42
PROVIDERS: ATTEND Family Medicine
DX: R06.02 Shortness of breath (principal); R10.9 Unspecified abdominal pain; M79.7 Fibromyalgia; R53.83 Other fatigue
CPT/HCPCS: 36415; 71046; 74018; 82040; 82247; 82310; 82374; 82435; 82565; 82947; 84075; 84132; 84155; 84295; 84450; 84460; 84520; 85025

== ENCOUNTER 2017-07-21 14:52 | Outpatient (RCR) | payer OTHER ==
[~2017-07-21] VITALS: Ht 152.4 cm; Wt 72.6 kg
[~2017-07-21 14:52] MED LIST changes: -TRAZ-156 PO; +TRAZ50TA34 PO
--- NOTE | 2017-07-22 10:26 | Medical Nutrition Therapy ---
Nutrition Anthropometrics Height (Inches): 60 (stated) Weight (Pounds): 160 (stated) BMI: 31 Lit Nutrition Score: Lit Nutrition Risk Score: Dietary Referral Nutrition Risk Factors: Nutrition Risk Comment: Physical Findings Physical Appearance: Obese BMI 30-39 Skin Appearance Skin Appearance: Edema Edema Location Modifier: Edema Location: Type of Edema: Degree of Edema: Gastrointestinal Symptoms GI Symtoms: Tube Present: Bowel Sounds: Recent Bowel Pattern: Stool Characteristics: Nutrition/Food History Breakfast: skips Lunch: 1-2 nutragrain bars, sandwich on WW Dinner: sandwich/starch or meat (sometimes breaded), veg, 1c starch Snacks: nutragrain bars Nutritional Education Nutrition Education Topic: Diabetic Nutrition Learning Barriers: Cognitive (10th grade education) Learning Readiness: Interested Teaching Methods: Discussion, Handout, Demonstration Response to Teaching: Verbalize understanding Teaching Recipient: Patient Nutrition Counseling: Pt recieved [facility] in Feb 2016. Pt states has not really followed but it is noted she cut back from the 4 sandwiches she was eating at lunchtime. Pt cont to skip brft. Pt is on a new diabetic medication that she didn't know what it was. From description and possible hypoglycemic sympotomes she is relating, it might be a sulfonarurea which can cause hypoglycemia. Recommended pt take a try a granola bar at her morning break to avoid hypoglycemia. Pt was agreebale to that change. Discussed glycemic response to CHO in simple terms. Recommend changing nutragrain bar to a high protein granola bar due to high glycemic response of these highly processed jelly filled bar. Pt states she really likes these bars and it probable that she won't change. Recommend if she wanted to continue to eat thes, to only eat one with her meals. Recommend pt eat protein any time she eats CHO. Provided handout of pictures with foods that will raise Bg and foods that will not. Reommended to keep the portions size down to 2 serving of CHO food/meal and unlimited non- starchy veg and protein foods. Pt verbalized understanding and acceptance however unsure of compliance. Pt states has been given a glucometer but doesn't know how to use it. Scheduled pt to attend class on September 05 to be taught glucometer and med management. Pt states she would consider it. Pt refused all other classes. Will cont with f/u phone calls. Nutrition Monitoring & Eval RD Patient Assessment Time: [address] Assessment Type: RD Education Nutritional Comment: Provided 50 minutes education focusing on nutrition, hypo and hyperglycemia, support plan and goals. Copies To Copies to: MING STANFORD BETH Jul 21, 2017 16:55
[2017-07-25] MEDS ORDERED: FAMO-67 PO (09:54)
== END 2017-08-25 ==
LOC: DIET 14:52
PROVIDERS: ATTEND Family Medicine
DX: Z71.3 Dietary counseling and surveillance (principal); E11.65 Type 2 diabetes mellitus with hyperglycemia; Z68.31 Body mass index [BMI] 31.0-31.9, adult
CPT/HCPCS: G0108 ×2

== ENCOUNTER → 2017-07-24 | Outpatient (REF) | payer OTHER ==
[~2017-07-24] MED LIST changes: +TRAZ-156 PO; -TRAZ50TA34 PO
[2017-07-24 11:18] LABS: PLATELET COUNT, AUTOMATED 186 K/uL (150-450)
== END ==
LOC: ZZSTITCHES 11:04
PROVIDERS: ATTEND Physician Assistant
DX: K92.1 Melena (principal); R10.84 Generalized abdominal pain
CPT/HCPCS: 82040; 82247; 82310; 82374; 82435; 82565; 82947; 84075; 84132; 84155; 84295; 84450; 84460; 84520; 85025

== ENCOUNTER → 2017-11-07 | Outpatient (CLI) | payer BC ==
[~2017-11-07] MED LIST changes: +FLU60SYR36 IM; -TRAZ-156 PO; +TRAZ50TA34 PO
[2017-11-07 16:43] LABS: PLATELET COUNT, AUTOMATED 212 K/uL (150-450)
== END ==
LOC: LAB 15:16
PROVIDERS: ATTEND Nurse Practitioner Family
DX: R10.13 Epigastric pain (principal); E03.9 Hypothyroidism, unspecified
CPT/HCPCS: 36415; 82040; 82150; 82247; 82310; 82374; 82435; 82565; 82947; 83036; 83690; 84075; 84132; 84155; 84295; 84443; 84450; 84460; 84520; 85025

== ENCOUNTER 2017-12-11 00:45 | Day surgery (SDC) | payer BC ==
[~2017-12-11] VITALS: Ht 152.4 cm; Wt 74.8 kg
[2017-12-11 10:31] VITALS: BP 132/86
[2017-12-11] MEDS ORDERED: LIDOCAINE/SOD BICARB 8.4% SYR ID ONE (11:10)
[2017-12-11] MEDS ORDERED: NORMOSOL R SOLN(*) 1000 ML BAG 1,000 ML IV PRN (11:10)
[2017-12-11 13:20] VITALS: BP 100/67
[2017-12-11 13:47] VITALS: BP 101/70
[2017-12-11 13:48] VITALS: BP 92/66
[2017-12-11 13:53] VITALS: BP 99/83
== END 2017-12-11 14:20 ==
LOC: OR 00:45
PROVIDERS: ATTEND Internal Medicine Gastroenterology
DX: K44.9 Diaphragmatic hernia without obstruction or gangrene (principal); K20.9 Esophagitis, unspecified; K29.70 Gastritis, unspecified, without bleeding; K64.8 Other hemorrhoids; K57.30 Diverticulosis of large intestine without perforation or abscess without bleeding
CPT/HCPCS: 36416; 82948; 88305; 88313; 88344